=== PATIENT | male | born 1950 | race Caucasian/White ===

== ENCOUNTER 2020-08-19 17:42 | Emergency (ER) | payer MEDICARE ==
[2020-08-19 18:03] VITALS: PULSE 77; TEMP 98.1
[2020-08-19] MEDS ORDERED: DIPH,PERTUS(ACELL)TETVAC-LF 0.5 ML VIAL IM ONE (18:40)
[2020-08-19] MEDS ORDERED: TOPICAL SKIN ADHESIVE 1 EACH AMP TOPICAL ONE (18:40)
--- NOTE | 2020-08-19 18:45 | ED ---
Wound/Laceration HPI - General Chief Complaint: Wound/Laceration Stated Complaint: Hit in the head with yard game piece Source: patient, family, RN notes reviewed Mode of arrival: wheelchair Limitations: no limitations - History of Present Illness Initial Comments: 69-year-old white male, alert and oriented 4, presents to the emergency room with complaints of being hit in the head with a plastic yard dice. Patient states that he thought everyone at the [place] dice and bent down to pick it up and one more came and hit him in the head. Patient states that he did not lose consciousness. He has not had any other injuries. There is a small 2 mm puncture wound to the crown of his scalp. There is no active bleeding. Patient unsure of his tetanus is up-to-date. Patient is a nonsmoker. Only medical history is hypertension. -: hour(s) (2) Location: scalp Place: outdoors Patient Tetanus UTD: No Context: accidental Associated Symptoms: none Treatments Prior to Arrival: bandage - Related Data Allergies Allergy/AdvReac Type Severity Reaction Status Date / Time No Known Allergies Allergy Verified 08/19/20 18:03 Review of Systems ROS Statement: Those systems with pertinent positive or pertinent negative responses have been documented in the HPI. ROS Other: All systems not noted in ROS Statement are negative. Past Medical History Past Medical History: Hypertension History of Any Multi-Drug Resistant Organisms: None Reported Past Surgical History: No Surgical Hx Reported Past Psychological History: No Psychological Hx Reported Smoking Status: Current every day smoker Past Alcohol Use History: Occasional Past Drug Use History: None Reported General Exam Limitations: no limitations General appearance: alert, in no apparent distress Head exam: Present: normocephalic, normal inspection, other (2 mm puncture wound to the scalp) Eye exam: Present: normal appearance, PERRL, EOMI. Absent: scleral icterus, conjunctival injection, periorbital swelling Pupils: Present: normal accommodation ENT exam: Present: normal exam, normal oropharynx, mucous membranes moist Neck exam: Present: normal inspection, full ROM. Absent: tenderness, meningismus, lymphadenopathy Respiratory exam: Present: normal lung sounds bilaterally. Absent: respiratory distress, wheezes, rales, rhonchi, stridor, chest wall tenderness, accessory muscle use, decreased breath sounds, prolonged expiratory Cardiovascular Exam: Present: regular rate, normal rhythm, normal heart sounds. Absent: systolic murmur, diastolic murmur, rubs, gallop, clicks GI/Abdominal exam: Present: soft, normal bowel sounds. Absent: distended, tenderness, guarding, rebound, rigid Extremities exam: Present: normal inspection, full ROM, normal capillary refill. Absent: tenderness, pedal edema, joint swelling, calf tenderness Back exam: Present: normal inspection, full ROM. Absent: tenderness, CVA tenderness (R), CVA tenderness (L), muscle spasm, paraspinal tenderness, vertebral tenderness Neurological exam: Present: alert, oriented X3, CN II-XII intact Psychiatric exam: Present: normal affect, normal mood Skin exam: Present: warm, dry, intact, normal color, other (2 mm puncture wound to the scalp). Absent: rash, cyanosis, diaphoretic, erythema, petechiae, pallor, mottled Course Vital Signs 08/19/20 17:59 Temperature 98.1 F Pulse Rate 77 Respiratory 22 Rate Blood Pressure 141/84 O2 Sat by Pulse 96 Oximetry Medical Decision Making - Medical Decision Making Patient sustained a 2 mm puncture wound from plastic dice in the yard game outside today. Patient's tetanus was updated, wound irrigated with 20 mL of saline, closed with dermal glue. Patient did not lose consciousness, he is not on a blood thinner. He denies headache. No vision changes. No nausea or vomiting. Patient has not sustained any other injuries. Case discussed with Dr. Gomez who is agreeable to this plan of care Disposition Clinical Impression: Laceration Disposition: HOME SELF-CARE Condition: Good Instructions (If sedation given, give patient instructions): Laceration (ED), Skin Adhesive Care (ED) Additional Instructions: Do not put any lotions or ointments on the dermal glue. Follow-up with your primary care doctor in 1 week. Return to the emergency room with any signs of infection including fever or purulent drainage. Is patient prescribed a controlled substance at d/c from ED?: No Referrals: Kwame Hughes DO [Primary Care Provider] - 1-2 days Time of Disposition: 18:56
[2020-08-19 19:27] VITALS: BP 152/95; RESP 18
== END 2020-08-19 19:29 | disposition home or self-care (01) ==
LOC: EC 17:42
DX: S01.01XA Laceration without foreign body of scalp, initial encounter (principal); Z23 Encounter for immunization; I10 Essential (primary) hypertension; F17.200 Nicotine dependence, unspecified, uncomplicated; W22.8XXA Striking against or struck by other objects, initial encounter
CPT/HCPCS: 12001; 90471; 90715; 99282